=== PATIENT | male | born 1995 | race American Indian/Alaskan Native ===

== ENCOUNTER 2018-10-21 21:58 | Emergency (ER) | payer SELFPAY ==
[2018-10-21] MEDS ORDERED: BOOSTRIX IM ONE (22:04)
--- NOTE | 2018-10-21 22:04 | Emergency Department Report ---
Blank Doc - Documentation Documentation: This is a 23-year-old male that presents with right ring finger lac. Stated d raphael crushed it today. Denies any other trauma. Denies being UTD with tetanus. This initial assessment diagnostic orders/clinical plan/treatment(s) is/are subject to change based on patient's health status, clinical progression and re- assessment by fellow clinical providers in the ED. Further treatment and workup at subsequent clinical providers discretion. Patient/guardians urged not to elope from ED s their condition may be serious if not clinically assessed and managed. Initial orders include: 1-Patient sent to [facility] for further evaluation and treatment 2- xray 3- tetanus
[2018-10-21 22:07] VITALS: BP 141/66
--- NOTE | 2018-10-22 00:12 | XRay Report ---
FINAL REPORT PROCEDURE: Right ring finger. TECHNIQUE: Three views. HISTORY: Laceration with trauma. COMPARISON: No prior studies are available for comparison. FINDINGS: The bones appear intact without fracture or dislocation. The joint spaces appear normal. There is a s oft tissue injury to the distal end of the ring finger. There are no radiopaque foreign bodies. IMPRESSION: Soft tissue injury without fracture.
--- NOTE | 2018-10-22 00:40 | Emergency Department Report ---
Upper Extremity - HPI Chief Complaint: Extremity Injury, Upper Stated Complaint: LACERATION ON RIGHT HAND FINGER Time Seen by Provider: 10/21/18 22:02 Upper Extremity: Right Index Finger (laceration ) Occurred When: Today Mechanism: Hit with Object Severity: moderate Symptoms: Yes Pain with Movement, Yes Limited Range of Movement, Yes Swelling, Yes Laceration or Abrasion, No Deformity, No Numbness, No Weakness, No Bruising/Ecchymosis Other History: right index finger laceration ED Review of Systems ROS: Stated complaint: LACERATION ON RIGHT HAND FINGER Other details as noted in HPI Constitutional: denies: chills, fever Eyes: denies: eye pain, eye discharge, vision change ENT: denies: ear pain, throat pain Respiratory: denies: cough, shortness of breath, wheezing Cardiovascular: denies: chest pain, palpitations Endocrine: no symptoms reported Gastrointestinal: denies: abdominal pain, nausea, diarrhea Genitourinary: denies: urgency, dysuria Musculoskeletal: joint swelling, other (right index finger laceration ) Skin: other (laceration right index finger ). denies: rash, lesions Neurological: denies: headache, weakness, paresthesias Psychiatric: as per HPI Hematological/Lymphatic: denies: easy bleeding, easy bruising ED Past Medical Hx - Past Medical History Previous Medical History?: No - Surgical History Past Surgical History?: No - Social History Smoking Status: Never Smoker Substance Use Type: Marijuana - Medications Home Medications: Home Medications Medication Instructions Recorded Confirmed Last Taken Type Neomycn/Bacitrc/Polymyx/Pramox 1 applic TP TID 14 Days #1 tube 10/22/18 Unknown Rx [Neosporin + Pain Relief Oint] Tramadol HCl [Ultram] 50 mg PO Q6H PRN #12 tablet 10/22/18 Unknown Rx cephALEXin [Keflex] 500 mg PO TID 10 Days #30 cap 10/22/18 Unknown Rx Upper Extremity Exam - Exam General: Vital signs noted. No distress. Alert and acting appropriately. Head and Torso: No HEENT Abnormality, No Neck Tenderness, No Chest/Lungs Abnormality, No Abdominal Tenderness, No Back Tenderness Shoulder Exam: Yes Normal Range of Motion in Shoulder, No Shoulder Tenderness, No Clavicle Tenderness, No Shoulder Deformity, No AC Joint Tenderness Arm Exam: No Arm/Humerus Tenderness, No Arm Deformity Elbow: No Elbow Tenderness, No Normal Range of Motion in Elbow, No Elbow Deformity Forearm: No Forearm Tenderness, No Forearm Deformity, No Pain with Pronation, No Pain with Supination Wrist: Yes Normal ROM in Wrist, No Wrist Tenderness, No Wrist Deformity, No Snuffbox Tenderness, No Pain with Axial Thumb Compression Hand: Yes Digit Tenderness (right index finger ), Yes Normal ROM in Digit(s) (restricted by pain ), No Digit(s) Deformity, No Tendon Dysfunction CMS Exam: Yes Broken Skin, Yes Normal Distal Pulses, Yes Normal Capillary Refill, Yes Normal Distal Sensation ED Course Vital Signs 10/21/18 22:04 Temperature 98.6 F Pulse Rate 71 Respiratory 18 Rate Blood Pressure 141/66 O2 Sat by Pulse 100 Oximetry - Laceration /Wound Repair Right Finger Wound Location: upper extremity (right index finger laceration ) Wound Length (cm): 3 Wound's Depth, Shape: superficial Wound Explored: clean Irrigated w/ Saline (ccs): 20 Betadine Prep?: Yes Anesthesia: 1% Lidocaine Volume Anesthetic (ccs): 2 (digital block ) Wound Debrided: minimal Wound Repaired With: sutures Suture Size/Type: 3:0, proline Number of Sutures: 12 (running ) Layer Closure?: No Progress: right index finger laceration 3 cm superficial bleeding controlled, wound cleaned with betadine solution, anesthesia with 1% lidocaine plan, 2 cc via digital block wound closed with 3.0 prolene x 12 sutures edges well approximated, all bleeding is controlled pt tolerated with minimal distress pt given wound care instructions pt verbalized agreement and understanding of same. ED Medical Decision Making - Radiology Data Radiology results: report reviewed, image reviewed Findings [facility] [address] [place] [address] XRay Report Signed Patient: ELVIRA SUAREZ MR#: [id number] : 1995 Acct:[id number] Age/Sex: 23 / M ADM Date: 10/21/18 Loc: ED Attending Dr: Ordering Physician: MISA PHAN NP Date of Service: 10/21/18 Procedure(s): XR finger(s) 2+V RT Accession Number(s): [id number] cc: MISA PHAN NP Fluoro Time In Minutes: FINAL REPORT PROCEDURE: Right ring finger. TECHNIQUE: Three views. HISTORY: Laceration with trauma. COMPARISON: No prior studies are available for comparison. FINDINGS: The bones appear intact without fracture or dislocation. The joint spaces appear normal. There is a soft tissue injury to the distal end of the ring finger. There are no radiopaque foreign bodies. IMPRESSION: Soft tissue injury without fracture. Transcribed By: MRM Dictated By: SCOTT SPARKS MD Electronically Authenticated By: SCOTT SPARKS MD Signed Date/Time: 10/22/1811 DD/ TD/TT: 10/22/1810 Critical care attestation.: If time is entered above; I have spent that time in minutes in the direct care of this critically ill patient, excluding procedure time. ED Disposition Clinical Impression: Finger laceration Qualifiers: Encounter type: initial encounter Finger: ring finger Damage to nail status: without damage Foreign body presence: with foreign body Laterality: right Qualified Code(s): S61.224A - Laceration with foreign body of right ring finger without damage to nail, initial encounter Disposition: TO HOME OR SELFCARE Is pt being admited?: No Does the pt Need Aspirin: No Condition: Stable Instructions: Finger Laceration (ED) Prescriptions: cephALEXin [Keflex] 500 mg PO TID 10 Days #30 cap Neomycn/Bacitrc/Polymyx/Pramox [Neosporin + Pain Relief Oint] 1 applic TP TID 14 Days #1 tube Tramadol HCl [Ultram] 50 mg PO Q6H PRN #12 tablet PRN Reason: pain Referrals: [facility] MD LYN [Primary Care Provider] - 3-5 Days MARCELO BRADLEY MD [Staff Physician] - 3-5 Days Forms: Work/School Release Form(ED) Time of Disposition: :20
[2018-10-22] MEDS ORDERED: NORCO 5/325 PO ONE (01:10)
== END 2018-10-22 02:32 | disposition home or self-care (01) ==
LOC: ED 21:58
DX: S61.224A Laceration with foreign body of right ring finger without damage to nail, initial encounter (principal); W45.8XXA Other foreign body or object entering through skin, initial encounter; Y93.89 Activity, other specified; Y92.89 Other specified places as the place of occurrence of the external cause; Y99.8 Other external cause status
CPT/HCPCS: 90471; 90715